=== PATIENT | male | born 1995 | race Caucasian/White ===

== ENCOUNTER → 2021-06-27 17:40 | Outpatient (CLI) | payer OTHER, SELFPAY ==
--- NOTE | 2021-06-27 | DI.MRI.S_ITS ---
PROCEDURE: MR LUMBAR SPINE WO CON INDICATIONS: Other intervertebral disc displacement, lumbar reg TECHNIQUE: Noncontrast sagittal T1 spin echo and T2 fast echo, sagittal STIR, axial T1 and T2 fast spin echo through the lumbar spine. In cases with scoliosis, additional coronal T2 fast spin echo may be performed. COMPARISON: [facility] Outside Film, CT, CT LUMBAR SPINE WITHOUT CONTRAST, 05/28/2021, 14:15. FINDINGS: Image quality: Excellent. Alignment and Curvature: Bilateral L5 pars defects, anterolisthesis of L5 on S1 measuring 1.5 cm, grade 2. Bone Marrow: Marrow is of normal overall signal. No acute vertebral body compression fractures. Spinal Cord: Conus medullaris terminates at the L1-L2 level. Visualized cord demonstrates normal signal and size. Paraspinous Soft Tissues: No paravertebral masses. T12-L1: No canal stenosis or foraminal stenosis. L1-L2: Mild facet hypertrophy. No canal stenosis or foraminal stenosis. L2-L3: Mild disc bulge. Mild facet hypertrophy. No canal stenosis or foraminal stenosis. L3-L4: Minimal disc bulge. Mild facet hypertrophy. No canal stenosis or foraminal stenosis. L4-L5: Mild broad-based posterior disc protrusion, eccentric to the right. No associated canal stenosis. Mild facet hypertrophy. No foraminal stenosis. L5-S1: Bilateral L5 pars defects, grade 2 anterolisthesis of L5 on S1. There is mild canal stenosis. There is marked bilateral foraminal narrowing with bilateral L5 foraminal nerve root impingement. IMPRESSION: 1. Bilateral L5 pars defects with grade 2 anterolisthesis of L5 on S1 results in mild canal stenosis and marked bilateral foraminal narrowing with bilateral L5 nerve root impingement. 2. There is disc protrusion at L4-L5 without canal stenosis. 3. Multilevel facet arthropathy. Dictated by: Haider Muir M.D. on 06/27/2021 at 18:57 Approved by: Haider Muir M.D. on 06/27/2021 at 19:02
== END ==
PROVIDERS: Referring Provider Orthopaedic Surgery Orthopaedic Surgery of the Spine; Visit Provider Orthopaedic Surgery Orthopaedic Surgery of the Spine
DX: M51.26 Other intervertebral disc displacement, lumbar region (principal); M47.816 Spondylosis without myelopathy or radiculopathy, lumbar region; M43.17 Spondylolisthesis, lumbosacral region
CPT/HCPCS: 72148

== ENCOUNTER → 2021-07-03 10:12 | Outpatient (CLI) | payer OTHER, SELFPAY ==
[2021-07-03 12:38] LABS: COVID19 -Nasal RAPID Negative (Negative)
== END ==
PROVIDERS: Visit Provider Physician Assistant
DX: Z20.822 Contact with and (suspected) exposure to COVID-19 (principal)
CPT/HCPCS: 87635

== ENCOUNTER 2021-07-07 08:56 | Observation (INO) | payer OTHER, SELFPAY ==
[2021-06-26 13:46] VITALS: BMI 29.4
[2021-07-05] VITALS (26 sets, daily range): BP systolic 116–167; BP diastolic 52–90; PULSE 70–111; RESP 8–97; TEMP 36.8–37.7; O2SAT 12–100; BMI 29.4
[2021-07-05] MEDS: LACTATED RINGERS 1,000 ML 42 ML IV ×2 (07:27→11:02)
--- NOTE | 2021-07-05 07:39 | PM.PREOP ---
Pre-operative Note COVID-19 COVID-19 status: Negative Result date/Date tested (Pos, Neg/Pending): 07/03/21 Interval Note History & Physical reviewed/Exam performed by Physician: Yes Changes to H&P: No
[2021-07-05] MEDS: CEFAZOLIN 1 GM VIAL 2 GM IV ×2 (07:51→15:21)
--- NOTE | 2021-07-05 08:28 | SUR.OPER ---
Prone on spine table, head in foam head support, padded chest and pelvic supports, gel pad at knees, lower legs supported by pillows; nipples, genitalia and toes free of pressure, arms secured on foam padded arm boards at <90 degrees abduction. Tape over blanket at thigh secured to table.
[2021-07-05] MEDS: BUPIVACAINE 0.25% (PF) 30 ML, EPINEPHrine 0.3 MG INJ (08:34)
[2021-07-05] MEDS: BUPIVACAINE LIPOSOME 266 MG/20 ML VIAL INJ (08:38)
--- NOTE | 2021-07-05 12:05 | DI.RAD.S_ITS ---
PROCEDURE: XR LUMBAR SPINE 2-3V INDICATIONS: L4-5, L5-S1 TLIF TECHNIQUE: Fluoroscopic images were obtained during an operative procedure and submitted for interpretation following the completion of the procedure. COMPARISON: [facility], MR, MR LUMBAR SPINE WO CON, 06/27/2021, 18:04. [facility] Outside Film, CT, CT LUMBAR SPINE WITHOUT CONTRAST, 05/28/2021, 14:15. FINDINGS: These fluoroscopic images were performed for intraoperative localization. On these images, lumbosacral fixation hardware is placed at L4 through S1. Grade 2 L5-S1 anterolisthesis is seen. Please correlate with intraoperative findings. IMPRESSION: Normal intraoperative examination. Dictated by: Gareth Cagle M.D. on 07/05/2021 at 12:16 Approved by: Gareth Cagle M.D. on 07/05/2021 at 12:17
--- NOTE | 2021-07-05 12:22 | P.OP_ITS ---
Operative Date/Time/Diagnoses Date of procedure: 07/05/21 Time of procedure: 08:00 Pre-op diagnosis: 1. Grade III spondylolisthesis L5-S1 2. Spinal stenosis with radiculopathy L4-5, L5-S1 3. Spondylosis with radiculopathy lumbar spine Post-op diagnosis: same Procedure & Clinicians Procedure: 1. L4-5, L5-S1 Postero-lateral and posterior interbody fusion 2. L4-5, L5-S1 interbody cage placement. 3. L4-5, L5-S1 decompressive laminectomy with bilateral facetecomies 4. L4-5, L5-S1 Posterior segmental instrumentation 5. [place] of bone marrow from iliac crest 6. Utilization of microsurgical technique and operating microscope Same procedure as scheduled: Yes Indications: Patient has been having chronic back pain and worsening lumbar radiculopathy. Patient was found to grade 3 spondylolisthesis at L5-S1 level with correlating back pain and radicular symptoms. Due to the grade of spondylolisthesis and early degenerative changes with disc h erniation was decided L4-5 should be fused to facilitate the reduction and fusion of L5-S1. Patient failed multiple conservative management with worsening pain weakness and numbness in his lower extremity. Patient has been having difficulty performing activity of daily living. After discussing risks benefits of treatment options, patient elected proceed with surgery. Surgeon: [place] Salesman/Owner: Anai Dockery Click Yes if Unassisted: No Anesthesia Type: General Operative Notes Closure Type: primary Specimen(s): none sent Prosthetic devices, grafts, tissues, transplants, or devices: Globus revolve screws, Rise cages Applied: catheter Estimated Blood Loss (mL): 100 Blood products transfused: none Procedure in detail: Patient was seen in the preoperative area. Risks and benefits of the surgery was discussed with the patient. Informed consent was obtained from the patient and placed in the chart. Surgical site was marked. Patient was taken to the operative room. General anesthesia was administered. Prophylactic antibiotic was given to the patient less than 30 min before the incision was made. Patient was placed into a prone position on the Gama table. Patient's back was then prepped and draped in the sterile fashion. Time- out was performed at this time. Using AP and lateral C-arm imaging the interval between L4-S1 was identified and marked on patient's back. A 2 inch incision 2 in from midline was made on the left side first. The fascia was incised in line with skin incision. Globus MARS retractors was placed inside the incision and docked onto the L4 and L5 lamina. Using microsurgical technique and operating microscope, a L4 and L5 laminectomy and L4-5 L5-S1 facetectomy was performed using a Kerrison rongeur. During the process of decompression more than 75% of bilateral L4-5 L5-S1 facets were removed in order to decompress the spinal canal and the lateral recess. The L4- 5 L5-S1 level was grossly unstable after the decompression was completed and requiring the fusion procedure. The disc space at L4-5, L5-S1 was identified. And a total diskectomy was performed at L4-5, L5-S1 level. The endplates were decorticated using a rasp and shaver. The total diskectomy and decortication was performed at L4-5, L5-S1 level in order to to accomplish a L4-5, L5-S1 fusion. The local bone from the laminectomy and facetectomy was saved for local bone grafting. After the total diskectomy and decortication was completed, Trifecta bone graft material was combined with local bone that was harvested earlier. At this time, a separate skin is incision was made over the iliac crest. A Jamshidi needle was inserted into the iliac crest through a separate skin incision. 5 cc of bone marrow aspiration was obtained through the separate skin incision using a Jamshidi needle from the iliac crest. The bone marrow aspiration was combined with local bone and the Trifecta bone grafting material. The bone grafting material was placed into the L4-5, L5-S1 interbody space along with two cages, one expandable cage at each level. The cages were expanded to their maximum height using the torque limiting screwdriver. At this time a mirror image incision was made on the right side. The fascia was incised in line with the skin incision. Globus MARS retractor was inserted and docked onto the L4-5, L5-S1 posterolateral gutter. Using the power drill, posterior-lateral decortication was performed at L4-5, L5-S1 level until bleeding cortical bone was identified. The remaining bone grafting material was placed into the L4-5 L5-S1 posterior lateral gutter he order to accomplish posterolateral fusion at the L4-5 L5-S1 levels. Using the double C-arm technique, pedicle screws were placed into the L4, L5, S1 pedicles bilaterally. This was done by placing the Jamshidi needle into the pedicles, then placing the guidewires over the Jamshidi needle, and finally placing the cannulated screws over the guidewires bilaterally. After the pedicle screws were placed, 2 titanium rods was locked into the heads of the pedicle screws using locking caps and torque limiting screwdriver. Total 6 pedicles screws were placed. A threaded reducers were used to reduce patient's L5-S1 spondylolisthesis. Approximately 50% reduction was accomplished using the hardware and the reduction tools. Additional reduction will potentially compromised L5 pedicle screw purchase with possibility of pulling out of bone. Decision was made to fuse the patient with the amount of reduction accomplished since at this time patient's spine has been stabilized with spinal stenosis fully decompressed. After all the hardware was placed, and confirmed with AP and lateral C-arm imaging, the wound was then irrigated with sterile normal saline and packed with Ray-Saul gauze for 3 min to accomplish hemostasis. After the gauze was removed the deep fascia was closed with #1 Vicryl suture. The subcutaneous layer was closed with 2-0 Vicryl. The skin was closed with skin yari. Patient tolerated the procedure well. There were no complications. Complications: none Post-operative Condition: stable Disposition: PACU Plan for aftercare: Admit to inpatient hospital
--- NOTE | 2021-07-05 12:43 | SUR.PHASEI ---
Dr Loera notified of patient shaking. See new orders given.
[2021-07-05] MEDS: MEPERIDINE 50 MG/ML INJ 12.5 MG IV (12:50)
[2021-07-05] MEDS: HYDROMORPHONE 2 MG INJ IV ×2 (12:52→13:07)
[2021-07-05] MEDS: hydrOXYzine 50 MG/ML INJ IM (12:56)
[2021-07-05] MEDS: fentaNYL 100 MCG/2 ML INJ IV ×2 (13:13→13:27)
[2021-07-05] MEDS: OXYCODONE/ACETAMINOPHEN 5/325 TABLET 1 TAB PO (13:31)
--- NOTE | 2021-07-05 14:24 | SUR.PHASEI ---
Pt transferred at 1407 to room 206 in bed with this RN. Updated SBAR repot at bedside to Andrea DURAN. Pt awake, alert, neuro status intact and dressing C/D/I with belongings and cell phone. Bed in low position. Call light in reach.
--- NOTE | 2021-07-05 14:24 | PC.NURSE ---
Day shift: Pt on unit from PACu at approx 1420. HE is A&Ox4. VS WNL but temp is 99.8. WIll continue to monitor VS and temp. Castro patent with clear yellow output. Dressing on back is CDI. CMS ok w/ good PPP. Foot SCD's tolerated . He is c/o back pain and will be medicated per MAR. We will have him be a high fall risk for now. Oriented to room and call light. Call light in reach and bed alarm is on.
--- NOTE | 2021-07-05 14:37 | SUR.PHASEI ---
patient with 1000ml in LR in PACU.
[2021-07-05] MEDS: SODIUM CHLORIDE 0.9% 1,000 ML 100 ML IV (14:41)
[2021-07-05] MEDS: hydrOXYzine pamoate 25 MG CAPSULE PO ×3 (14:45→21:17)
[2021-07-05] MEDS: ACETAMINOPHEN 325 MG TABLET 650 MG PO ×2 (14:45→21:16)
[2021-07-05] MEDS: HYDROMORPHONE 0.5 MG INJ IV ×2 (14:45→17:50)
--- NOTE | 2021-07-05 16:09 | PT.IIE ---
Current Diagnoses Spondylolisthesis, lumbosacral region (07/05/21) Surgery Performed Operation Date: 07/05/21 07:45 Actual Procedures p L4-5, L5-S1 TLIF with posterior instrumentation- Robot - [place] MD Medical History (Last Updated 06/26/21 @ 14:09 by Chitra Lopez RN) Acid reflux DDD (degenerative disc disease) Mild hypertension Spondylolisthesis Vaccine reaction Physical Therapy Inpatient Evaluation/Re-Eval M1 PT/OT-IP Prior Functional Status Start: 07/05/21 17:06 Freq: NEEDED Status: Active Protocol: Document 07/05/21 16:09 AB (Rec: 07/05/21 17:22 AB [email or web address]) Medical Review Prior Functional Status Medical History Reviewed Yes Communication able to make needs known Mobility and Gait pt stated that he is independent with all mobilities and ambulation without AD Social History Household Members significant other Living Arrangements Apartment/Condo Number of Floors (Floors) One Floor Number of Stairs To Enter/Railing? 1 step to enter Home Environment Standard Height Toilet,Tub/ Shower Home Equipment Shower Seat with Backrest, Neonatal Intensive Care Unit Nurse,Grab Bars In Shower Additional Social History Comment has a standard walker pt's GF will assist pt when not working; pt stated that GF will be available during the weekend to assist but works parts chaser during the week M2 PT-IP Current Condition Start: 07/05/21 17:06 Freq: NEEDED Status: Active Protocol: Document 07/05/21 16:09 AB (Rec: 07/05/21 17:22 AB [email or web address]) Physical Therapy Current Condition Current Condition Evaluation Date 07/05/21 Treatment Diagnosis s/p L4-5, L5S1 TLIF; difficulty in walking Onset Date 07/05/21 M3 PT-IP Subjective Start: 07/05/21 17:06 Freq: NEEDED Status: Active Protocol: Document 07/05/21 16:09 AB (Rec: 07/05/21 17:22 AB [email or web address]) Subjective Physical Therapy Visit Type Type Initial Evaluation Visit Start Time 16:09 Visit Stop Time 17:05 Total Visit Minutes 56 Number of DESIGN ENGINEER Visits 0 Physical Therapy Visit Comments Patient Comments agreeable to do PT Therapy Pain Assessment Pain When Pain Assessed At Rest Pain Present Pain Present Pain Reported Location low back Intensity 7 Scale Used Numeric (0 - 10) Pain Behaviors Facial Grimacing,Guarding, Wincing Pain Management Techniques Apply Cold,Distraction, Modification of Treatment,Re- positioning,Timing of Activity with Medications M4 PT-IP Mobility and Gait Start: 07/05/21 17:06 Freq: NEEDED Status: Active Protocol: Document 07/05/21 16:09 AB (Rec: 07/05/21 17:22 AB [email or web address]) PT-Bed Mobility Assessment Rolling Type of Rolling Log Rolling Level of Assist Maximal Assistance,2 Person Assistance Supine to Sit Supine to Sit Maximum Assistance,2 Person Assistance,Head of Bed Elevated,Bedrails Scooting Scooting to Edge of Bed Maximum Assistance PT-Transfer Assessment Sit to and From Stand Sit to and from Stand Maximum Assistance,2 Person Assistance,Use of Upper Extremities Equipment Transfer Assistive Device Front Wheeled Walker Orthotic/Prosthetic Devices or Brace: No Transfers Transfer Destination Chair Transfer Technique Stand Step Pivot Transfer Ability Level of Assist Maximum Assistance,2 Person Assistance,Use of Upper Extremities Comments Mobility Comments educated pt on back precautions and log roll bed mobility. completed log roll supine to sit max A x 2 and max cues. c/o increase back pain with guarding and needing increase rest breaks in between tasks. pt required initial mod A for sitting balance, repostioned and required CGA. completed sit to stand max A x 2 and max cues and step transfer to chair max A x 2 and max cues. positioned on chair. set up for dinner. ice pack provided . call light and table placed within reach. Gait Assessment Comments Gait Comments took steps during transfers PT-Balance Assessment Sitting Balance and Reactions Static Sitting Balance Ability Fair Dynamic Sitting Balance Ability Fair Standing Balance and Reactions Static Standing Balance Ability Poor Dynamic Standing Balance Ability Poor Device Used FWW M5 PT-IP Objective Assessments Start: 07/05/21 17:06 Freq: NEEDED Status: Active Protocol: Document 07/05/21 16:09 AB (Rec: 07/05/21 17:22 AB [email or web address]) Orientation Orientation/Cognition Level of Alertness Alert Orientation Name,Place Language Function Ability No Deficits Noted Safety Awareness Decreased Safety Awareness Memory Description No Deficits Noted Gross Range of Motion Lower Extremity ROM Assessment Within Functional Limits Strength Lower Extremity Strength Assessment Bilaterally Impaired Comments Strength Comments LLE: 4-/5 RLE: 3+/5 Coordination Assessment Gross Coordination Gross Coordination WNL Sensation Assessment Sensation Sensation Description Tingling Comments Sensation Comments BLE feet tingling Muscle Tone Muscle Tone WNL Yes M6 PT-IP Treatment Start: 07/05/21 17:06 Freq: NEEDED Status: Active Protocol: Document 07/05/21 16:09 AB (Rec: 07/05/21 17:22 AB [email or web address]) Physical Therapy Treatment Education Education Provided Precautions,Weight Bearing Status,Post-Op Packet,Safety M7 PT-IP Assessment and Plan Start: 07/05/21 17:06 Freq: NEEDED Status: Active Protocol: Document 07/05/21 16:09 AB (Rec: 07/05/21 17:22 [email or web address]) PT Summary Assessment and Plan Potential Rehabilitation Potential Fair Status of Condition at Evaluation Evolving Summary Impairments Pain,ROM,Strength,Balance, Coordination,Sensation,Tone, Cognition,Bed Mobility, Transfers,Gait,Activity Tolerance Assessment Summary Pt s/p L4-5, L5S1 TLIF POD 0 and c/o increase back pain. required max A x 2 for bed mobility and transfer using FWW. will continue to assess progress. will conduct caregiver training when appropriate. Goals Bed Mobility Goal Standby Assistance Transfer Goal Standby Assistance,Front Wheeled Walker Gait Goal Standby Assistance,Front Wheel Walker Gait Distance 250 Other Goals ambulation using standard walker mod I 250 ft up/down 1 step using standard walker SBA Days to Meet Goals 10 Frequency of Treatment Frequency Of Treatment Twice a Day Treatment Plan Physical Therapy Treatment Plan Bed Mobility Training,Transfer Training,Gait Training, Therapeutic Exercise,Balance Retraining,Post Op Education, Discharge Planning,Hot or Cold Pack,Neuromuscular Re-ed, Coordination Retraining,Manual Therapy Precautions Lumbar Precautions Log Roll,No Twisting,Limit Bending,Lifting Restriction of 10 lbs,Gait Belt above Incisional Area Recommendations To Nursing Amount of Assist Needed 2 Person Assist Discharge Recommendations PT Discharge Recommendations Home with Assistance,Home Health Equipment Needed for Home Before FWW if not safe with std Discharge walker Transportation Needs at Discharge Private Vehicle
[2021-07-05] MEDS: OXYCODONE IR 5 MG TABLET 10 MG PO ×2 (16:40→21:15)
[2021-07-05] MEDS: SENNOSIDES 8.6 MG TABLET 17.2 MG PO (21:16)
[2021-07-05] MEDS: SODIUM CHLORIDE 0.9% FLUSH 10 ML IV (21:17)
[2021-07-05] MEDS: DOCUSATE 100 MG CAPSULE PO (21:17)
[2021-07-06] VITALS (8 sets, daily range): BP systolic 124–140; BP diastolic 63–79; PULSE 71–110; RESP 16–18; TEMP 37–38.7; O2SAT 95–98
[2021-07-06] MEDS: SODIUM CHLORIDE 0.9% 1,000 ML 100 ML IV (00:32)
[2021-07-06] MEDS: OXYCODONE IR 5 MG TABLET 10 MG PO ×2 (00:37→08:17)
[2021-07-06] MEDS: hydrOXYzine pamoate 25 MG CAPSULE PO ×4 (00:38→21:24)
[2021-07-06] MEDS: HYDROMORPHONE 0.5 MG INJ IV ×6 (04:33→23:10)
[2021-07-06] MEDS: ACETAMINOPHEN 325 MG TABLET 650 MG PO ×3 (04:34→19:47)
[2021-07-06 06:30] LABS: Hematocrit 39.3 % (41-53); Hemoglobin 13.3 g/dL (13.5-17.5)
[2021-07-06] MEDS: CEFAZOLIN 1 GM VIAL 2 GM IV (06:49)
[2021-07-06] MEDS: DOCUSATE 100 MG CAPSULE PO ×2 (08:17→21:23)
[2021-07-06] MEDS: MAGNESIUM HYDROXIDE 30 ML UDC PO (08:18)
[2021-07-06] MEDS: SODIUM CHLORIDE 0.9% FLUSH 10 ML IV ×4 (09:19→21:23)
--- NOTE | 2021-07-06 10:20 | PM.DS.1 ---
History of Present Illness History of Present Illness Chief complaint: TLIF *OPB* Narrative: Patient's pain is been moderate to severe. Denies fever, chills. No nausea vomiting. Had significant pain with physical therapy. His girlfriend will be home to assist him. Discharge Providers Provider Discharge Date: 07/06/21 Primary care physician: Erlin Moctezuma PA-C Consults: 07/05/21 14:13 Consult to Occupational Therapy Evaluate & Treat Comment: Physician Instructions: Evaluate and treat Consult to Physical Therapy Evaluate & Treat Comment: Physician Instructions: Evaluate and Treat Discharge provider: Juliano Govea PA-C Summary Hospital Course Discharge Diagnosis: 1. Grade III spondylolisthesis L5-S1 2. Spinal stenosis with radiculopathy L4-5, L5-S1 3. Spondylosis with radiculopathy lumbar spine Hospital Course: 1. L4-5, L5-S1 Postero-lateral and posterior interbody fusion 2. L4-5, L5-S1 interbody cage placement. 3. L4-5, L5-S1 decompressive laminectomy with bilateral facetecomies 4. L4-5, L5-S1 Posterior segmental instrumentation 5. [place] of bone marrow from iliac crest 6. Utilization of microsurgical technique and operating microscope Same procedure as scheduled: Yes Indications: Patient has been having chronic back pain and worsening lumbar radiculopathy. Patient was found to grade 3 spondylolisthesis at L5-S1 level with correlating back pain and radicular symptoms. Due to the grade of spondylolisthesis and early degenerative changes with disc herniation was decided L4-5 should be fused to facilitate the reduction and fusion of L5-S1. Patient failed multiple conservative management with worsening pain weakness and numbness in his lower extremity.? Patient has been having difficulty performing activity of daily living.? After discussing risks benefits of treatment options, patient elected proceed with surgery. Surgeon: [place] Reservationist: Anai Dockery Click Yes if Unassisted: No Anesthesia Type: General Operative Notes Closure Type: primary Specimen(s): none sent Prosthetic devices, grafts, tissues, transplants, or devices: Globus revolve screws, Rise cages Applied: catheter Estimated Blood Loss (mL): 100 Blood products transfused: none Patient admitted to the hospital for the above-mentioned procedure. Patient consented to the same. Patient taken to the operating room on July 05, 2021. Patient back in his room recovering well and is in stable condition. Patient worked with physical therapy and was 2 person assist. Patient will work with physical therapy today. Patient will be discharged home today if safe for home environment. If unable to mobilize and be 1 person assist he will be discharged home tomorrow. Patient understood and was in agreement with this plan. Exam Vital Signs (past 8 hours): - 07/06/21 04:33 07/06/21 04:34 07/06/21 04:37 Temperature 101.6 F H 101.6 F H 101.6 F H Pulse Rate 101 H Respiratory Rate 18 Blood Pressure 134/76 Pulse Oximetry 98 07/06/21 06:39 07/06/21 08:46 Temperature 98.8 F 98.6 F Pulse Rate 71 Respiratory Rate 16 Blood Pressure 127/63 Pulse Oximetry 95 Oxygen Delivery Method Nasal Cannula Oxygen Flow Rate 0 Narrative Exam Narrative: 25-year-old male resting comfortably in bed in no apparent distress. Lumbar dressing is clean dry and intact. Motor functions intact bilateral lower extremities. Sensation grossly intact to light touch bilateral lower extremities. Const General: cooperative and healthy appearing Orientation: alert and oriented x3 Eyes General: appearance normal, both eyes and all related structures Objective Labs Result Diagrams: 07/06/21 06:17 Labs: Laboratory Results - last 24 hr 07/06/21 06:17 Hgb 13.3 L Hct 39.3 L PFSH Medical History (Updated 06/26/21 @ 14:09 by Chitra Lopez RN) Acid reflux DDD (degenerative disc disease) Mild hypertension Spondylolisthesis Vaccine reaction Surgical History (Updated 06/26/21 @ 14:06 by Chitra Lopez RN) Sebastian teeth removed Social History household members: significant other Smoking Status: Current every day smoker alcohol intake: current Discharge Assessment & Plan Assessment and Plan Assessment: Patient progressing as expected Plan of Treatment: Mobilize with physical therapy, limit bending, twisting, lifting Multimodal pain management Discharge home today after physical therapy if safe for home environment Discharge Plan Discharge Plan Patient Disposition: Home Provider Discharge Comment: Discharge home today after physical therapy if safe for home environment Discharge orders & Medications Discharge Orders: Discharge (Order); Ordered 07/06/21 Ordered By: Julinao Govea Prescriptions: New acetaminophen 325 mg Tablet 650 mg PO Q6HR PRN (Reason: Pain, Mild (1-3)) Qty: 60 RF: 0 hydromorphone 2 mg Tablet 2 mg PO Q6HR PRN (Reason: Pain, Severe (7-10)) Qty: 20 RF: 0 docusate sodium 100 mg Capsule 100 mg PO BID Qty: 20 RF: 0 oxycodone 5 mg Tablet 10 mg PO Q3HR PRN (Reason: Pain, Severe (7-10)) Qty: 40 RF: 0 hydroxyzine pamoate 25 mg Capsule 25 mg PO Q4HR PRN (Reason: Nausea And Vomiting) Qty: 30 RF: 0 Follow up/Referrals: Erlin Moctezuma PA-C [Primary Care Provider] - [place] MD [Physician] - (2 weeks) Diet/Activity/Treatments Diet: Diet as Tolerated Activity: Limit bending, twisting, lifting Cold/Heat Therapy: Apply ice to back as needed Skin/Wound/Dressing Care Report to your healthcare provider any signs of infection, such as:: chills, fever, increased pain, unusual drainage and unusual redness Dressing: Keep dressing clean and dry Visit Report/Discharge Packet Instructions: DI for Transforaminal Lumbar Interbody Fusion Stand Alone Forms: Surgery Discharge Discharge Data Primary Care Provider: Erlin Moctezuma Attending Provider: [place] Quality VTE Deep Vein Thrombosis/Pulmonary Embolism Present on Admission: No
[2021-07-06] MEDS: HYDROMORPHONE 2 MG TABLET PO ×3 (10:29→21:26)
--- NOTE | 2021-07-06 11:37 | PC.NURSE ---
Day shift: Pt did not want Castro cath removed today. He is working w/ PT now and pain level 8/10 when OOB. Medicated per MAR for this pain. Will continue to monitor pain. Dressing remains CDI. Call light in reach. AGrees to not get OOB w/o help from staff.
--- NOTE | 2021-07-06 11:52 | PT.IPTN ---
Current Diagnoses Spondylolisthesis, lumbosacral region (07/05/21) Surgery Performed Operation Date: 07/05/21 07:45 Actual Procedures p L4-5, L5-S1 TLIF with posterior instrumentation- Robot - [place] MD Physical Therapy Treatment Note M2 PT-IP Current Condition Start: 07/05/21 17:06 Freq: NEEDED Status: Active Protocol: Document 07/05/21 16:09 AB (Rec: 07/05/21 17:22 AB [id number]) Physical Therapy Current Condition Current Condition Evaluation Date 07/05/21 Treatment Diagnosis s/p L4-5, L5S1 TLIF; difficulty in walking Onset Date 07/05/21 M3 PT-IP Subjective Start: 07/05/21 17:06 Freq: NEEDED Status: Active Protocol: Document 07/06/21 11:07 KS (Rec: 07/06/21 12:47 KS [id number]) Subjective Physical Therapy Visit Type Type Treatment Note Visit Start Time 11:07 Visit Stop Time 11:52 Total Visit Minutes 45 Number of MERCHANDISE SUPPORT ASSOCIATE Visits 1 Physical Therapy Visit Comments Patient Comments agreeable to do PT Therapy Pain Assessment Pain When Pain Assessed At Rest Pain Present Pain Present Pain Reported Location low back Intensity 7 Scale Used Numeric (0 - 10) Pain Behaviors Facial Grimacing,Guarding, Wincing Pain Management Techniques Distraction,Modification of Treatment,Re-positioning, Timing of Activity with Medications M4 PT-IP Mobility and Gait Start: 07/05/21 17:06 Freq: NEEDED Status: Active Protocol: Document 07/06/21 11:07 KS (Rec: 07/06/21 12:47 KS [id number]) PT-Bed Mobility Assessment Rolling Type of Rolling Log Rolling Level of Assist Contact Guard Assistance,1 Person Assistance Supine to Sit Supine to Sit Moderate Assistance,1 Person Assistance,Bedrails Sit to Supine Sit to Supine Minimal Assistance,1 Person Assistance Scooting Scooting to Edge of Bed Contact Guard Assistance PT-Transfer Assessment Sit to and From Stand Sit to and from Stand Minimal Assistance,1 Person Assistance,Use of Upper Extremities Equipment Transfer Assistive Device Front Wheeled Walker Orthotic/Prosthetic Devices or Brace: No Transfers Transfer Destination Bed Transfer Technique Lateral Scoot Transfer Ability Level of Assist Minimal Assistance,Moderate Assistance,1 Person Assistance ,Use of Upper Extremities Comments Mobility Comments Pt in bed upon arrival from therapy reporting 7/10 pain and able to recall 3/3 spinal precautions. CGA and bedrails for logroll, Mod A for sidelying<>sit, CGA for scooting to EOB. Pt able to sit<>Stand w/ FWW Min A and cues. Upon standing, pt c/o increased pain, was able to march in place for ~15 seconds but c/o dull achy pain when weight bearing on RLE and requested to sit back down. He then was able to complete lateral scoot towards HOB. Min A for sit<>sup for LE assistance into bed. CGA for logroll. Pt c/o of pain in the back of his leg, upon assessment pt has been lying w / bent knees and hamstrings tight, but able to relax some following light stretch and STM to R hamstring and calf. RN arrived to provide more pain medication to pt. Pt left in bed w/ all needs in reach and WELLNESS TRAINER in room. Gait Assessment Comments Gait Comments Only able to tolerate short bout of marching in place. PT-Balance Assessment Sitting Balance and Reactions Static Sitting Balance Ability Fair Dynamic Sitting Balance Ability Fair Standing Balance and Reactions Static Standing Balance Ability Poor Dynamic Standing Balance Ability Poor Device Used FWW M5 PT-IP Objective Assessments Start: 07/05/21 17:06 Freq: NEEDED Status: Active Protocol: Document 07/05/21 16:09 AB (Rec: 07/05/21 17:22 AB [id number]) Orientation Orientation/Cognition Level of Alertness Alert Orientation Name,Place Language Function Ability No Deficits Noted Safety Awareness Decreased Safety Awareness Memory Description No Deficits Noted Gross Range of Motion Lower Extremity ROM Assessment Within Functional Limits Strength Lower Extremity Strength Assessment Bilaterally Impaired Comments Strength Comments LLE: 4-/5 RLE: 3+/5 Coordination Assessment Gross Coordination Gross Coordination WNL Sensation Assessment Sensation Sensation Description Tingling Comments Sensation Comments BLE feet tingling Muscle Tone Muscle Tone WNL Yes M6 PT-IP Treatment Start: 07/05/21 17:06 Freq: NEEDED Status: Active Protocol: Document 07/06/21 11:07 KS (Rec: 07/06/21 12:47 KS [id number]) Physical Therapy Treatment Education Education Provided Precautions,Weight Bearing Status,Post-Op Packet,Safety Other Treatments Other Treatment Performed STM R hamdstring M7 PT-IP Assessment and Plan Start: 07/05/21 17:06 Freq: NEEDED Status: Active Protocol: Document 07/06/21 11:07 KS (Rec: 07/06/21 12:47 KS [id number]) PT Summary Assessment and Plan Potential Rehabilitation Potential Fair Status of Condition at Evaluation Evolving Summary Impairments Pain,ROM,Strength,Balance, Coordination,Sensation,Tone, Cognition,Bed Mobility, Transfers,Gait,Activity Tolerance Assessment Summary Pt continues to be limited in mobility by high level of pain in low back and RLE. Showed improvement with bed mobility, CGA for logroll, Mod A for sup<>sit, Min A for sit<>sup. Unable to tolerate ambulation due to pain. Some relief found w/ STM to R hamstring and R calf stretch w/ gaitbelt. Pt will benefit from continued skilled therapy to improve tolerance for activity and functional mobility. Goals Bed Mobility Goal Standby Assistance Transfer Goal Standby Assistance,Front Wheeled Walker Gait Goal Standby Assistance,Front Wheel Walker Gait Distance 250 Other Goals ambulation using standard walker mod I 250 ft up/down 1 step using standard walker SBA Days to Meet Goals 10 Frequency of Treatment Frequency Of Treatment Twice a Day Treatment Plan Physical Therapy Treatment Plan Bed Mobility Training,Transfer Training,Gait Training, Therapeutic Exercise,Balance Retraining,Post Op Education, Discharge Planning,Hot or Cold Pack,Neuromuscular Re-ed, Coordination Retraining,Manual Therapy Precautions Lumbar Precautions Log Roll,No Twisting,Limit Bending,Lifting Restriction of 10 lbs,Gait Belt above Incisional Area Recommendations To Nursing Amount of Assist Needed 1 Person Assist Discharge Recommendations PT Discharge Recommendations Home with Assistance,Home Health Equipment Needed for Home Before FWW if not safe with std Discharge walker Transportation Needs at Discharge Private Vehicle
--- NOTE | 2021-07-06 12:55 | OT.IP.EVAL ---
Current Diagnoses Spondylolisthesis, lumbosacral region (07/05/21) Surgery Performed Operation Date: 07/05/21 07:45 Actual Procedures p L4-5, L5-S1 TLIF with posterior instrumentation- Robot - [place] MD Past Medical History (Last Updated 06/26/21 @ 14:09 by Chitra Lopez, RN) Acid reflux DDD (degenerative disc disease) Mild hypertension Spondylolisthesis Vaccine reaction [place] teeth removed Surgical History (Last Updated 06/26/21 @ 14:06 by Chitra Lopez RN) [place] teeth removed Occupational Therapy Inpatient Evaluation/Re-Eval M1 PT/OT-IP Prior Functional Status Start: 07/05/21 17:06 Freq: NEEDED Status: Active Protocol: Document 07/06/21 14:14 CGR (Rec: 07/06/21 14:36 CGR [id number]) Medical Review Prior Functional Status Medical History Reviewed Yes Communication able to make needs known Mobility and Gait pt stated that he is independent with all mobilities and ambulation without AD Activities of Daily Living and IADL's Pt was IND in all ADLs and IADLs at baseline Prior Functional Level (Other details) Pt works on [email or web address] in [place] Social History Household Members significant other Living Arrangements Apartment/Condo Number of Floors (Floors) One Floor Number of Stairs To Enter/Railing? 1 step to enter Home Environment Standard Height Toilet,Tub/ Shower Home Equipment Shower Seat with Backrest, Inlayer,Grab Bars In Shower Employment Status Active Duty Additional Social History Comment has a standard walker pt's GF will assist pt when not working; pt stated that GF will be available during the weekend to assist but works apartment property manager during the week M1 PT/OT-IP Prior Functional Status Start: 07/06/21 14:13 Freq: NEEDED Status: Active Protocol: Document 07/06/21 14:14 CGR (Rec: 07/06/21 14:36 CGR [id number]) Medical Review Prior Functional Status Medical History Reviewed Yes Communication able to make needs known Mobility and Gait pt stated that he is independent with all mobilities and ambulation without AD Activities of Daily Living and IADL's Pt was IND in all ADLs and IADLs at baseline Prior Functional Level (Other details) 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 1 step to enter Home Environment Standard Height Toilet,Tub/ Shower Home Equipment Shower Seat with Backrest, Inlayer,Grab Bars In Shower Employment Status Active Duty Additional Social History Comment has a standard walker pt's GF will assist pt when not working; pt stated that GF will be available during the weekend to assist but works apartment property manager during the week M2 OT-IP Current Condition Start: 07/06/21 14:13 Freq: Status: Active Protocol: Document 07/06/21 14:14 CGR (Rec: 07/06/21 14:36 CGR [id number]) Occupational Therapy Current Condition Current Condition Evaluation Date 07/06/21 Treatment Diagnosis L4-S1 TLIF Diagnosis Onset Date 07/05/21 Post Operative Precautions Lumbar Precautions Log Roll,No Twisting,Limit Bending,Lifting Restriction of 10 lbs,Gait Belt above Incisional Area M3 OT- IP Subjective and Pain Start: 07/06/21 14:13 Freq: Status: Active Protocol: Document 07/06/21 14:14 CGR (Rec: 07/06/21 14:36 CGR [id number]) OT- Subjective Occupational Therapy Visit Type Type Initial Evaluation Visit Start Time 12:02 Visit Stop Time 12:55 Total Visit Minutes 53 Notes Pt recently finished with P.T. OT Pain Assessment Pain When Pain Assessed At Rest Pain Present Pain Present Pain Reported Location low back Intensity 7 Scale Used Numeric (0 - 10) Management Techniques Distraction,Modification of Treatment,Re-positioning, Timing of Activity with Medications M4 OT- IP ADL's Start: 07/06/21 14:13 Freq: Status: Active Protocol: Document 07/06/21 14:14 CGR (Rec: 07/06/21 14:36 CGR [id number]) OT [id number] General Evaluation Self-Feeding Ability Independent Comments OT Self-Feeding Comments Pt eating lunch at end of session. OT ADL-Grooming General Evaluation Grooming Ability Standby Assistance Areas Needing Assistance Face Washing Comments OT Grooming Comments seated in chair OT ADL-Oral Care General Eval Oral Care Ability Standby Assistance Areas of Assistance Brushing Teeth Comments Oral Care Comments seated in chair OT ADL-Dressing General Eval Lower Body Dressing Ability Standby Assistance Areas Needing Assistance Retrieving/Set-up of Clothing, Socks Assistive Devices Dressing Assistive Devices Inlayer,Sock Aid Comments OT Dressing Comments pt provided with hip kit and educated on LB dressing using hip kit. OT ADL-Toileting General Evaluation Toileting Ability Total Assistance Comments OT Toileting Comments not performed, pt with aggarwal OT ADL-Bathing Comments OT Bathing Comments not performed M5 OT- IP IADL's Start: 07/06/21 14:13 Freq: Status: Active Protocol: Document 07/06/21 14:14 CGR (Rec: 07/06/21 14:36 CGR [id number]) OT-Instrumental Activities of Daily Living Deficits IADL Deficits Identified No Deficits Home Safety Awareness Awareness of Need for Assistance at Home Good Awareness Ability to Problem Solve Emergency Able to Problem Solve Situations Medication Management Medication Management No Deficits Identified Money Management Money Management No Deficits Identified Meal Preparation Meal Preparation Caregiver Provides Assist Recruiting And Selection Consultant Recruiting And Selection Consultant Caregiver Provides Assist M6 OT- IP Functional Cognition Start: 07/06/21 14:13 Freq: Status: Active Protocol: Document 07/06/21 14:14 CGR (Rec: 07/06/21 14:36 CGR [id number]) Cognitive Factors Limiting Selfcare Function Cognitive Ability Level of Alertness Alert Patient Orientation Name,Age,Birthday,Month,Date, Year,Day of Week,Place, Situation Attention Span Ability Capable of Focused Attention, Capable of Sustained Attention Ability to Follow Commands Able to Follow Multi-Step Commands OT- Vision and Hearing OT- Hearing Assessment OT- Hearing Assessment WFL OT- Vision Assessment Visual Acuity WFL Visual Attentiveness WFL Occular Pursuits WFL Vision Assessment Comments Pt states he is slightly near sighted and has glasses for driving. M7 OT- IP Mobility and Balance Start: 07/06/21 14:13 Freq: Status: Active Protocol: Document 07/06/21 14:14 CGR (Rec: 07/06/21 14:36 CGR [id number]) OT- Bed Mobility Assessment Rolling Type of Rolling Log Rolling,Roll to Left Level of Assistance Contact Guard Assistance Supine to Sit Supine to Sit Assist Contact Guard Assistance Scooting Scooting to Edge of Bed Contact Guard Assistance OT-Transfer Assessment Sit to and From Stand Sit to and from Stand Minimal Assistance Transfers Transfer Ability Minimal Assistance Technique Transfer Destination Bed,Chair Transfer Technique Stand Step Pivot Devices Transfer Assistive Devices Gait Belt,Front Wheeled Walker Comments Mobility Comments Pt states that when he got up earlier he felt light headed. Sitting EOB is very uncomfortable for pt. OT- Gait Assessment Comments Gait Ability Comments Did not occur OT- Balance Assessment Sitting Balance and Reactions Static Sitting Balance Ability Good Dynamic Sitting Balance Ability Good M8 OT- IP Objective Assessments Start: 07/06/21 14:13 Freq: Status: Active Protocol: Document 07/06/21 14:14 CGR (Rec: 07/06/21 14:36 CGR [id number]) OT Gross Range of Motion Upper Extremity Range of Motion Assessment Within Functional Limits OT Strength Upper Extremity Strength Assessment Within Functional Limits Comments Strength Comments 12/26 OT- Coordination Assessment Upper Extremity Finger to Nose Test Within Functional Limits Finger Tapping Test Within Functional Limits OT-Muscle Tone Assessment Muscle Tone WNL Yes OT Sensation Assessment Edema Edema Absent M9 OT- IP Assessment and Plan Start: 07/06/21 14:13 Freq: Status: Active Protocol: Document 07/06/21 14:14 CGR (Rec: 07/06/21 14:36 CGR [id number]) OT Summary Assessment and Plan Potential Rehabilitation Potential Excellent Analytic Complexity at Evaluation Moderate Summary OT Impairments Pain,Functional Mobility, Grooming,Dressing,Toileting, Bathing,Toilet Transfers, Shower Transfers,Activity Tolerance Progress Towards Goals Slow Progress due to Pain Assessment Summary Pt presents as a moderate complexity evaluation s/p admit fro L4-S1 TLIF. Pt is progressing slowly with reports of significant pain at this time. Specific complains of the R leg feeling very tight/posterior chain pain. Pt was able to transfer to chair and perform ADLs. Pt educated on LB dressing with hip kit and back precautions. Pt left up in chair at end of session . Call button within reach and all needs at time met. Goals Grooming Goal Independent Dressing Goal Independent Toileting Goal Independent Bathing Goal Independent Toilet Transfer Goal Independent Shower Transfer Goal Independent Days to Meet Goals 5 Frequency of Treatment Frequency Of Treatment Once a Day Treatment Plan OT Treatment Plan ADL Training,Functional Mobility,Patient/Family Education,Discharge Planning Other Treatment Recommendations and Next shower if able Treatment Focus Discharge Recommendations OT Discharge Recommendations Home with Assistance Transportation Needs at Discharge Private Vehicle
--- NOTE | 2021-07-06 13:37 | PC.NURSE ---
Day shift: Per conversation w/ PA Juliano Govea this AM ok to cancel discharge for today if Pt didn't do well with PT. PT very slow moving and pain 7-9/10 when moving/ambulating. Will take out cath tomorrow AM. Pt wants to keep it in for today and tonight. Pt in chair and reports pain 2/10. Castro patent with clear yellow output. Pt has remained with normal temp so far this shift. No nausea.
--- NOTE | 2021-07-06 14:21 | PT.IPTN ---
Current Diagnoses Spondylolisthesis, lumbosacral region (07/05/21) Surgery Performed Operation Date: 07/05/21 07:45 Actual Procedures p L4-5, L5-S1 TLIF with posterior instrumentation- Robot - [place] MD Physical Therapy Treatment Note M2 PT-IP Current Condition Start: 07/05/21 17:06 Freq: NEEDED Status: Active Protocol: Document 07/05/21 16:09 AB (Rec: 07/05/21 17:22 AB [id number]) Physical Therapy Current Condition Current Condition Evaluation Date 07/05/21 Treatment Diagnosis s/p L4-5, L5S1 TLIF; difficulty in walking Onset Date 07/05/21 M3 PT-IP Subjective Start: 07/05/21 17:06 Freq: NEEDED Status: Active Protocol: Document 07/06/21 13:41 KS (Rec: 07/06/21 15:19 KS [id number]) Subjective Physical Therapy Visit Type Type Treatment Note Visit Start Time 13:41 Visit Stop Time 14:21 Total Visit Minutes 40 Number of RESEARCH GENETICIST Visits 2 Physical Therapy Visit Comments Patient Comments agreeable to do PT Therapy Pain Assessment Pain When Pain Assessed During Mobility Pain Present Pain Present Pain Reported Location low back Intensity 5 Scale Used Numeric (0 - 10) Pain Behaviors Facial Grimacing,Guarding, Wincing Pain Management Techniques Distraction,Modification of Treatment,Re-positioning, Timing of Activity with Medications M4 PT-IP Mobility and Gait Start: 07/05/21 17:06 Freq: NEEDED Status: Active Protocol: Document 07/06/21 13:41 KS (Rec: 07/06/21 15:19 KS [id number]) PT-Bed Mobility Assessment Rolling Type of Rolling Log Rolling Level of Assist Contact Guard Assistance,1 Person Assistance Sit to Supine Sit to Supine Minimal Assistance,1 Person Assistance Scooting Scooting to Edge of Bed Contact Guard Assistance PT-Transfer Assessment Sit to and From Stand Sit to and from Stand Minimal Assistance,1 Person Assistance,Use of Upper Extremities Equipment Transfer Assistive Device Front Wheeled Walker Orthotic/Prosthetic Devices or Brace: No Transfers Transfer Destination Bed Transfer Technique Lateral Scoot Transfer Ability Level of Assist Contact Guard Assistance, Minimal Assistance,1 Person Assistance,Use of Upper Extremities Comments Mobility Comments Pt in chair upon arrival from therapy and agreeable to try ambulating. Pt c/o increase pain in R glute and hamstring. Min A for sit<>stand w/ FWW. Pt then performed 30 seconds weight shifting and marching in place in preparation for ambulation. Pt then ambulated ~100 ft w/ FWW and CGA. Pt demonstrated good use of FWW and did not rely heavily on BUE. Pt c/o increasing pain w/ further distance and returned to room and bed. Min A for sit<>sidelying for LE guidance , CGA for logroll and repositioning. STM to proximal hamstring, distal quad, calf. Pt reported relief of pain following STM. Pt left in bed w/ MEDICAL RECORDS MANAGER in room. Gait Assessment Gait Gait Assistance Required: Contact Guard Assist,1 Person Assist Distance (Feet) 100 Able to Maintain Weight Bearing Status Yes During Gait Assistive Devices Assistive Device Front Wheeled Walker Gait Deviations General Gait Pattern Antalgic,Decreased Stride Length,Decreased Feet Clearance Factors Limiting Gait Function Factors Limiting Gait Function Decreased Strength,Pain Comments Gait Comments Pt ambulated ~100 ft w/ FWW CGA w/ good use of FWW. Decrreased stride and foot clerance due to pain. PT-Balance Assessment Sitting Balance and Reactions Static Sitting Balance Ability Good Dynamic Sitting Balance Ability Good Standing Balance and Reactions Static Standing Balance Ability Good Dynamic Standing Balance Ability Good Device Used FWW M5 PT-IP Objective Assessments Start: 07/05/21 17:06 Freq: NEEDED Status: Active Protocol: Document 07/05/21 16:09 AB (Rec: 07/05/21 17:22 AB [id number]) Orientation Orientation/Cognition Level of Alertness Alert Orientation Name,Place Language Function Ability No Deficits Noted Safety Awareness Decreased Safety Awareness Memory Description No Deficits Noted Gross Range of Motion Lower Extremity ROM Assessment Within Functional Limits Strength Lower Extremity Strength Assessment Bilaterally Impaired Comments Strength Comments LLE: 4-/5 RLE: 3+/5 Coordination Assessment Gross Coordination Gross Coordination WNL Sensation Assessment Sensation Sensation Description Tingling Comments Sensation Comments BLE feet tingling Muscle Tone Muscle Tone WNL Yes M6 PT-IP Treatment Start: 07/05/21 17:06 Freq: NEEDED Status: Active Protocol: Document 07/06/21 13:41 KS (Rec: 07/06/21 15:19 KS [id number]) Physical Therapy Treatment Education Education Provided Precautions,Weight Bearing Status,Post-Op Packet,Safety Other Treatments Other Treatment Performed STM R hamstring, quad, calf M7 PT-IP Assessment and Plan Start: 07/05/21 17:06 Freq: NEEDED Status: Active Protocol: Document 07/06/21 13:41 KS (Rec: 07/06/21 15:19 KS [id number]) PT Summary Assessment and Plan Potential Rehabilitation Potential Fair Status of Condition at Evaluation Evolving Summary Impairments Pain,ROM,Strength,Balance, Coordination,Sensation,Tone, Cognition,Bed Mobility, Transfers,Gait,Activity Tolerance Assessment Summary Pt showed improvements with bed mobility, transfers, ambulation and tolerance for activity this PM. Continues to have high level of pain. Min A for sit<>stand, CGA for ~100 ft ambulation w/ FWW. Min A for sit<>sidelying for LE assistance. Relief of pain in RLE following STM to R hamstring, quad, and gastroc. Anticipate pt will be safe to return home following caregiver training. Goals Bed Mobility Goal Standby Assistance Transfer Goal Standby Assistance,Front Wheeled Walker Gait Goal Standby Assistance,Front Wheel Walker Gait Distance 250 Other Goals ambulation using standard walker mod I 250 ft up/down 1 step using standard walker SBA Days to Meet Goals 10 Frequency of Treatment Frequency Of Treatment Twice a Day Treatment Plan Physical Therapy Treatment Plan Bed Mobility Training,Transfer Training,Gait Training, Therapeutic Exercise,Balance Retraining,Post Op Education, Discharge Planning,Hot or Cold Pack,Neuromuscular Re-ed, Coordination Retraining,Manual Therapy Precautions Lumbar Precautions Log Roll,No Twisting,Limit Bending,Lifting Restriction of 10 lbs,Gait Belt above Incisional Area Recommendations To Nursing Amount of Assist Needed 1 Person Assist Discharge Recommendations PT Discharge Recommendations Home with Assistance,Home Health Equipment Needed for Home Before FWW - pt only has standard Discharge Transportation Needs at Discharge Private Vehicle
--- NOTE | 2021-07-06 16:24 | CM.DANOTE ---
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 HERNANDEZ. CM met with patient at the bedside and explained role. Patient was alert and oriented x4 at time of CM visit. patient lives with his girl friend in a ground level apartment in [place]. Patient uses FWW prior to surgery and is currently using FWW with PT. PT and OT recommend home with 1 person assist. patient is Independent and drives at baseline. Patient was in pain at time of visit stating he just received PO pain medications and it has not kicked in at this time. CM let Patients nurse know about his pain level. patients nurse will wait a few more minutes and check in on his pain level to see if he will need IV pain medication. I: and self pay Plan: DC home with girlfriend when medically stable. no Identified dc planning needs noted at this time. Discharge Planning/Care Management CM Discharge Assessment Start: 07/06/21 16:22 Freq: Status: Active Protocol: Document 07/06/21 16:22 HS (Rec: 07/06/21 16:23 HS [id number]) Discharge Planning Assessment Assigned Financial Compliance Officer Brooke June RNbulb weeder DPOA/Assigned Designee Name Natalia (Girl Friend) Contact Information [phone] Advance Directives? No History Provided By Patient Has Patient been admitted in last 30 No days? Prior Living Arrangements Apartment/Condo Household Members significant other Comment Girl Friend Natalia Type of transporation used prior to Drives own vehicle admit Independent with ADL's Yes Is patient alert and oriented? Yes Caregiver for Another No DME Already Rented / Owned FWW / Walker Patient/Family Preference OP PT Therapy Barriers to Discharge No Discharge Plan Home Referrals Initiated None needed Whiteboard Updated in Patient Room with Yes name and ext. # of Financial Compliance Officer Review Status In Process Next Review Type Continued Stay Review Pre-Anesthesia Assessment Start: 06/26/21 13:46 Freq: Status: Active Protocol: Document 06/26/21 13:46 CAB (Rec: 06/26/21 14:39 CAB [id number]) Pre-Anesthesia Assessment Patient Information Reviewed Via Phone Assessment Assessment Completed With Patient H&P Completed Within 30 Days Yes Comment Labs on Base per pt, not here, COVID screen @ 07/03/21 Primary Care Provider Erlin Moctezuma Seen Specialist in Last 12 Months Yes Specialist Seen Orthopedist Primary Language Yoruba Print Line Operator Required No Height 177.8 cm Weight 92.986 kg Body Mass Index (BMI) 29.4 Hearing Ability Normal Visual Assist Glasses Dentition Type Teeth, Natural Present Barriers to Learning None Hx Anesthesia Reactions [place] teeth extraction only procedure Hx Family Anesthesia Reaction No Hx Malignant Hyperthermia No Hx Blood Transfusions No Anesthesia Review Requested No alcohol intake current alcohol intake frequency holidays/special occasions only Tobacco type smokeless tobacco how long ago did patient quit smoking Vapes smoking Substance Use Type does not use Pain Present Pain Reported Musculoskeletal Symptoms Abnormal Gait,Back Pain, Difficulty Walking,Muscle Spasms History of Falling (Recent or History of No ) Patient is completely paralyzed or No completely immobile Mental Status Oriented to own ability Is patient on oxygen? No Does patient have WEINSTEIN/SOB Yes: Occasional feels r.t to vaping Hx Sleep Apnea No Currently Taking a Beta Millie No Can You Climb a Flight of Stairs Without Yes SOB Hx Chest Pain No Hx SOB Yes: Occasional feels r/t to vaping Hx Syncope or Dizziness No Anti-Coagulant Therapy No Has a Motor Racer No Cardiac Testing No Hx Pacemaker/ICD No Pacemaker Rep Required? No Cardiac Clearance Received Not Applicable Diet Type At Home Regular dysphagia No Gastrointestinal Symptoms Reflux Urinary Catheter Present No Hx Urinary Self Catheterization No Diabetes No Hx Drug Resistant Organism No Presence of External or Internal Medical No Devices Have you had any close contact with No someone diagnosed with COVID-19? Received a COVID vaccine? Yes: Pfizer Received all doses? Yes Marital Status Single Lives With significant other Prior Living Arrangements Apartment/[employer]o Support System Significant Other Does the Patient Have Assistance After Yes Surgery Patient Discharge Plan Description Return Home Comment Pt not advised on length of stay per surgeon Feels Safe in Current Environment Yes Been Physically Hurt or Threatened By a No Person in Current Environment Do you have thoughts of harming yourself None or others? Are you currently considering suicide? No If Yes, Provider Notified Yes Do You Have Any Spiritual Beliefs That No May Affect Your HC Choices? Do You Have Any Cultural Practices That No May Affect Your HC Choices? Who Can We Speak to About Patient's Care Family, friends Identifying Code for Release of Patient Declines to issue Information Health Care Proxy/Next of Kin Carole Burgos (mom) Health Care Proxy Emergency Contact Name Marilee Elizalde (Charley) Emergency Contact Advance Directives? No Power of Instructional Design Specialist No PAC Instructions Durable medical equipment, Medications to take/avoid, Nasal antibiotic,No ETOH/ petroleum product on skin DOS, NPO,Post-op transportation,Pre -surgical wash,Do not bring valuables and remove jewelry
[2021-07-06] MEDS: SENNOSIDES 8.6 MG TABLET 17.2 MG PO (21:23)
[2021-07-07] VITALS: BP 119/60; PULSE 76; RESP 18; TEMP 37.9; O2SAT 97
[2021-07-07] MEDS: ACETAMINOPHEN 325 MG TABLET 650 MG PO ×2 (01:26→08:32)
[2021-07-07] MEDS: HYDROMORPHONE 2 MG TABLET PO ×4 (01:26→14:01)
[2021-07-07 03:23] VITALS: BP 136/77; PULSE 90; RESP 18; TEMP 37.6; O2SAT 95
[2021-07-07] MEDS: OXYCODONE IR 5 MG TABLET 10 MG PO ×2 (03:28→06:32)
[2021-07-07] MEDS: hydrOXYzine pamoate 25 MG CAPSULE PO ×2 (03:29→08:32)
[2021-07-07] MEDS: HYDROMORPHONE 0.5 MG INJ IV (05:15)
[2021-07-07 08:00] VITALS: BP 117/63; PULSE 92; RESP 16; TEMP 36.7; O2SAT 92
[2021-07-07] MEDS: DOCUSATE 100 MG CAPSULE PO (08:32)
[2021-07-07] MEDS: MAGNESIUM HYDROXIDE 30 ML UDC PO (08:32)
[2021-07-07] MEDS: SODIUM CHLORIDE 0.9% FLUSH 10 ML IV (08:37)
--- NOTE | 2021-07-07 09:31 | P.PN_ITS ---
Subjective Subjective Date Patient Seen: 07/07/21 Time Patient Seen: 09:32 Interval history: Postop day 2 L4-S1 spinal fusion for grade 3 spondylolisthesis. Had pain control issues overnight still requiring IV pain medication. Does feel that the 2 mg of hydromorphone helps more than the oxycodone that a q.6 hours is the too long and still feels that he has an at least in our uncovered in between doses. Endorsing cramping/spasm pain in his right leg since surgery. Requiring assistance for ambulation using a walker. Castro in place. Remaining hospitalized last evening and overnight due to pain control and mobility issues. Exam Vital Signs (past 8 hours): - 07/07/21 03:23 07/07/21 08:00 Temperature 99.6 F 98.1 F Pulse Rate 90 92 H Respiratory Rate 18 16 Blood Pressure 136/77 117/63 Pulse Oximetry 95 92 Oxygen Delivery Method Nasal Cannula Oxygen Flow Rate 0 Const General: cooperative Nutritional Appearance: average body habitus HENMT Head: normal to inspection Resp Effort & Inspection: normal respiratory effort Other: Castro in place Back/Spine/Pelvis Back: back tenderness Other: Dressing clean. SCDs in place. Demonstrates flexion extension of the great toe and ankles. Calf soft. Endorsing spasm pain right lower extremity states back pain improved today from yesterday Neuro General: patient alert Objective Labs Result Diagrams: 07/06/21 06:17 PFSH Medical History Acid reflux DDD (degenerative disc disease) Mild hypertension Spondylolisthesis Vaccine reaction Surgical History (Updated 06/26/21 @ 14:06 by Chitra Lopez RN) [place] teeth removed Social History household members: significant other Smoking Status: Current every day smoker alcohol intake: current Assessment & Plan Post-op Postoperative Procedures: Procedures Operation Date: 07/05/21 07:45 Actual Procedure Side Surgeon p L4-5, L5-S1 TLIF with posterior instrumentation- Robot [place] Beach MD Postoperative day: 2 Postoperative status: marginal pain control Postoperative status narrative: Back pain better after surgery having more right lower extremity spasms was able to get up and ambulate in the halls with PT marginal pain control has required IV medication. Was not medically stable for discharge home yesterday Postoperative plan narrative: Will remove Castro today. Needs to void prior to discharge. Will adjust pain medication decrease interval for hydromorphone dosing. Avoid IV pain meds. If not, trialed on 2 mg hydromorphone q.4 then will increase to 4 mg. Will increase Vistaril 50 mg and add gabapentin 300 mg t.i.d. And avoid for continued hospital admission due to pain control. Does well with new regimen today and avoid possible discharge home this evening versus tomorrow Time Spent With Patient Time with patient: 15-24 minutes Quality VTE Deep Vein Thrombosis/Pulmonary Embolism Present on Admission: No
--- NOTE | 2021-07-07 09:39 | PM.DS.1 ---
History of Present Illness History of Present Illness Date Patient Seen: 07/07/21 Time Patient Seen: 09:39 Chief complaint: TLIF *OPB* Narrative: Status post 2 level posterior spinal fusion L4- S1 w/ Dr. Beach For grade 3 spondylolisthesis. Failed conservative treatment was indicated for surgery. Discharge Providers Provider Date of admission: 07/05 Discharge Date: 07/07/21 Primary care physician: Erlin Moctezuma PA-C Consults: 07/05/21 14:13 Consult to Occupational Therapy Evaluate & Treat Comment: Physician Instructions: Evaluate and treat Consult to Physical Therapy Evaluate & Treat Comment: Physician Instructions: Evaluate and Treat Discharge provider: Jessica Puri MD Summary Hospital Course Discharge Diagnosis: Spondylolisthesis grade 3 Hospital Course: Admitted to the hospital postoperatively. Had difficulty with pain control on postop day 1 Pain better after surgery but the right leg spasms postop. Had difficulty with postoperative pain control. Better control with hydromorphone but still not covering the interval in requiring IV pain medication. Was changed to cue for dosing for hydromorphone added Neurontin and increased Vistaril. Castro removed on postop day 2 will undergo voiding trial prior to discharge. Was able to ambulate in the [place] with a walker with therapy. Plan for home with 1 person assist Status at Discharge Cognitive/behavioral status at discharge: oriented Functional status at discharge: uses cane/walker Overall status at discharge: patient is progressing back to baseline Time Spent with Patient Time spent: Less than 30 minutes Exam Vital Signs (past 8 hours): - 07/07/21 03:23 07/07/21 08:00 Temperature 99.6 F 98.1 F Pulse Rate 90 92 H Respiratory Rate 18 16 Blood Pressure 136/77 117/63 Pulse Oximetry 95 92 Oxygen Delivery Method Nasal Cannula Oxygen Flow Rate 0 Narrative Exam Narrative: Alert oriented male no acute distress Lying in bed. Castro in place. Yellow urine. Dressing clean and dry. Wiggles toes demonstrates flexion and extension great toes bilaterally and ankles. SCDs bilateral HENMT Head: normal to inspection Resp Effort & Inspection: normal respiratory effort Objective Labs Result Diagrams: 07/06/21 06:17 [facility] Medical History Acid reflux DDD (degenerative disc disease) Mild hypertension Spondylolisthesis Vaccine reaction Surgical History [place] teeth removed Social History household members: significant other Smoking Status: Current every day smoker alcohol intake: current Discharge Assessment & Plan Assessment and Plan Assessment: Patient progressing as expected Plan of Treatment: Mobilize with physical therapy, limit bending, twisting, lifting Multimodal pain management Discharge home today after physical therapy if safe for home environment--and voids Discharge Plan Discharge Plan Patient Disposition: Home Provider Discharge Comment: Discharge home today after physical therapy if safe for home environment-and voids Discharge orders & Medications Discharge Orders: Discharge (Order); Ordered 07/07/21 Ordered By: Jessica Puri Prescriptions: New acetaminophen 325 mg Tablet 650 mg PO Q6HR PRN (Reason: Pain, Mild (1-3)) Qty: 60 RF: 0 docusate sodium 100 mg Capsule 100 mg PO BID Qty: 20 RF: 0 hydromorphone 2 mg tablet 2 mg PO Q4H PRN (Reason: pain) Qty: 60 RF: 0 hydroxyzine HCl 50 mg tablet 50 mg PO QID PRN (Reason: nausea and vomiting) Qty: 20 RF: 1 gabapentin 300 mg capsule 300 mg PO TID Qty: 15 RF: 0 docusate sodium [Colace] 100 mg capsule 100 mg PO BID Qty: 20 RF: 0 Follow up/Referrals: Erlin Moctezuma PA-C [Primary Care Provider] - Kenyon Beach MD [Physician] - (2 weeks) Diet/Activity/Treatments Diet: Diet as Tolerated Activity: Limit bending, twisting, lifting Cold/Heat Therapy: Apply ice to back as needed Skin/Wound/Dressing Care Report to your healthcare provider any signs of infection, such as:: chills, fever, increased pain, unusual drainage and unusual redness Dressing: Keep dressing clean and dry Visit Report/Discharge Packet Instructions: How to Prevent Falls, DI for Prescription Opioid Use, DI for Transforaminal Lumbar Interbody Fusion, Hydroxyzine (By mouth) Stand Alone Forms: Surgery Discharge Discharge Data Primary Care Provider: Erlin Moctezuma Attending Provider: Kenyon Beach Quality VTE Deep Vein Thrombosis/Pulmonary Embolism Present on Admission: No
[2021-07-07] MEDS: hydrOXYzine pamoate 25 MG CAPSULE 50 MG PO ×2 (10:13→14:01)
[2021-07-07] MEDS: GABAPENTIN 300 MG CAPSULE PO ×2 (10:13→14:01)
--- NOTE | 2021-07-07 11:21 | PT.IPTN ---
Current Diagnoses Spondylolisthesis, lumbosacral region (07/05/21) Surgery Performed Operation Date: 07/05/21 07:45 Actual Procedures p L4-5, L5-S1 TLIF with posterior instrumentation- Robot - [place] Beach MD Physical Therapy Treatment Note M2 PT-IP Current Condition Start: 07/05/21 17:06 Freq: NEEDED Status: Active Protocol: Document 07/07/21 11:21 JG (Rec: 07/07/21 12:28 J [id number]) Physical Therapy Current Condition Current Condition Evaluation Date 07/05/21 Treatment Diagnosis s/p L4-5, L5S1 TLIF; difficulty in walking Onset Date 07/05/21 M3 PT-IP Subjective Start: 07/05/21 17:06 Freq: NEEDED Status: Active Protocol: Document 07/07/21 11:21 JG (Rec: 07/07/21 12:28 J [id number]) Subjective Physical Therapy Visit Type Type Treatment Note Visit Start Time 10:56 Visit Stop Time 11:21 Total Visit Minutes 25 Notes SPT Corina participated in session and was directly supervised by PT Maria Number of DIRECTOR OF SAFETY AND SECURITY Visits 0 Physical Therapy Visit Comments Patient Comments Pt reports that new meds that were adjusted this AM significantly help w/R LE px. Pt reported that the new meds helped while amb in hallway and on platform. Pt reports that his friend will lend him a FWW and he can pick it up on the way home this afternoon if he is discharged. Pt asked questions about home routine re amb and activity and was receptive to PT's answers. Therapy Pain Assessment Pain When Pain Assessed At Rest Pain Present Pain Present Reassessed Location Right Thigh Pain Behaviors Guarding,Holding Area,Wincing Pain Management Techniques Re-positioning,Timing of Activity with Medications low back Pain Behaviors Facial Grimacing,Guarding, Wincing Pain Management Techniques Re-positioning,Timing of Activity with Medications M4 PT-IP Mobility and Gait Start: 07/05/21 17:06 Freq: NEEDED Status: Active Protocol: Document 07/07/21 11:21 JG (Rec: 07/07/21 12:28 J [id number]) PT-Transfer Assessment Sit to and From Stand Sit to and from Stand Standby Assistance Equipment Transfer Assistive Device Gait Belt,Front Wheeled Walker Orthotic/Prosthetic Devices or Brace: No Transfers Transfer Destination Toilet Transfer Ability Level of Assist Standby Assistance Comments Mobility Comments Pt amb from standing next to bed to toilet SBA w/FWW. Gait Assessment Gait Gait Assistance Required: Standby Assistance Distance (Feet) 120 Able to Maintain Weight Bearing Status Yes During Gait Assistive Devices Assistive Device Front Wheeled Walker Gait Deviations General Gait Pattern Antalgic,Decreased Stride Length,Decreased Feet Clearance Factors Limiting Gait Function Factors Limiting Gait Function Pain Comments Gait Comments Pt was standing next to bed w/ SECURITY GUARD SUPERVISOR upon arrival. Pt amb to toilet SBA w/FWW and attempted unsuccessfully to void. Pt amb in hallway SBA w/FWW 120' Stair Climbing Assessment Evaluation Level of Assist On Stairs Minimal Assistance,1 Person Assistance Devices Stair Climbing Assistive Devices Front Wheel Walker Technique/Endurance Stair Climbing Direction Ascend and Descend Stair Climbing Technique Step to Step Number of Steps Climbed 1 Stair Climbing Set # Repetitions (reps) 2 Comments Stair Climbing Comments Pt was educated on and performed 1 step amb onto 6 inch platform min A w/FWW. PT assist w/FWW management. Pt has 1 step to enter home. PT-Balance Assessment Standing Balance and Reactions Static Standing Balance Ability Good Dynamic Standing Balance Ability Good Device Used FWW M5 PT-IP Objective Assessments Start: 07/05/21 17:06 Freq: NEEDED Status: Active Protocol: Document 07/07/21 11:21 (Rec: 07/07/21 12:28 [id number]) Orientation Orientation/Cognition Level of Alertness Alert Orientation Situation Language Function Ability No Deficits Noted Memory Description No Deficits Noted Strength Lower Extremity Strength Assessment Bilaterally Impaired Sensation Assessment Comments Sensation Comments Pt reports R LE px feels neurological M6 PT-IP Treatment Start: 07/05/21 17:06 Freq: NEEDED Status: Active Protocol: Document 07/07/21 11:21 J (Rec: 07/07/21 12:28 [id number]) Physical Therapy Treatment Education Education Provided Precautions,Weight Bearing Status,Safety M7 PT-IP Assessment and Plan Start: 07/05/21 17:06 Freq: NEEDED Status: Active Protocol: Document 07/07/21 11:21 J (Rec: 07/07/21 12:28 [id number]) PT Summary Assessment and Plan Potential Rehabilitation Potential Fair Status of Condition at Evaluation Evolving Summary Impairments Pain,ROM,Strength,Balance, Coordination,Sensation,Tone, Cognition,Bed Mobility, Transfers,Gait,Activity Tolerance Assessment Summary Pt showed improvement w/amb tolerance and was able to complete 1 stair training w/ FWW. Pt required FWW management while descending stairs. Pt requires mod cues while ascend/descend stairs. Pt reports he feels comfortable discharging home now that pain is managed and that he will inquire with surgeon and [place] about OP PT to treat R LE. Goals Bed Mobility Goal Standby Assistance Transfer Goal Standby Assistance,Front Wheeled Walker Gait Goal Standby Assistance,Front Wheel Walker Gait Distance 250 Other Goals ambulation using standard walker mod I 250 ft up/down 1 step using standard walker SBA Days to Meet Goals 10 Frequency of Treatment Frequency Of Treatment Twice a Day Treatment Plan Physical Therapy Treatment Plan Bed Mobility Training,Transfer Training,Gait Training, Therapeutic Exercise,Balance Retraining,Post Op Education, Discharge Planning,Hot or Cold Pack,Neuromuscular Re-ed, Coordination Retraining,Manual Therapy Precautions Lumbar Precautions Log Roll,No Twisting,Limit Bending,Lifting Restriction of 10 lbs,Gait Belt above Incisional Area Weight Bearing Status Weight Bearing Status Weight Bear as Tolerated Recommendations To Nursing Amount of Assist Needed 1 Person Assist Discharge Recommendations PT Discharge Recommendations Home with Assistance,Home Health Equipment Needed for Home Before Pt reports a friend, who Discharge recently had surgery themselves, is willing to loan him a FWW. Pt reports that he can pick FWW up on the way home from discharge. Transportation Needs at Discharge Private Vehicle Treatment was provided by Corina Jones, AYDIN and supervised by Maria Young, PT. I personally reviewed this note and agree with its contents.
[2021-07-07 11:32] VITALS: BP 146/91; PULSE 118; RESP 16; TEMP 36.1; O2SAT 92
--- NOTE | 2021-07-07 11:33 | PC.NURSE ---
Day shift: Pt has voided post-Castro removal. He has been cleared by PT and pain well controlled with updated pain med orders per OCT. Pt has MD scripts for the same pain meds for use at home. Pt's SO will be here at approx 1400 today.
--- NOTE | 2021-07-07 15:09 | PC.NURSE ---
Day shift: paperwork signed and all questions answered. Dressing on back remains CDI. Pt has voided and been cleared by PT. Pain has been well controlled per OCT. Pt's SO in room for d/c teachings. Taken to car in by JULIUS Piedra at approx 1510. Pt has all personal belongings. Pt's SO took scripts to pharmacy. They will pick jup scripts osn way out of town. Pt encouraged to keep taking stool softeners for as long as he is taking pain narcs. He said he would.
== END 2021-07-07 15:12 | disposition home or self-care (01) ==
LOC: OR 14:16 → AC 14:16
PROVIDERS: Admitting Provider Orthopaedic Surgery Orthopaedic Surgery of the Spine; PCP Physician Assistant; Referring Provider Orthopaedic Surgery; Visit Provider Orthopaedic Surgery Orthopaedic Surgery of the Spine
PROC: (CPT 63047; principal; 2021-07-05 07:45)
DX: M43.17 Spondylolisthesis, lumbosacral region (principal); M48.061 Spinal stenosis, lumbar region without neurogenic claudication; M54.16 Radiculopathy, lumbar region; F17.210 Nicotine dependence, cigarettes, uncomplicated; I10 Essential (primary) hypertension
CPT/HCPCS: 63047; 63048; 22633; 22840; 22634; 22853; 22854; 20939; 36415; 72100; 76000; 82962; 85014; 85018; 97116; 97140; 97162; 97166; 97530; 97535; 99406; C1776; G0378; C9290; J0171; J0330; J0690; J1100; J1170; J2175; J2250; J2405; J2704; J3010; J3410